=== PATIENT | female | born 1975 | race Caucasian/White ===

== ENCOUNTER 2021-03-04 19:58 | Inpatient (IN) | payer MEDICAID, OTHER ==
[~2021-03-04] VITALS: Ht 162.6 cm; Wt 76.5 kg
--- NOTE | 2021-03-04 20:11 | NUR ---
PT BROUGHT IN FROM [facility] FOR POSSIBLE STEMI. PT CO 8/10 STERNAL CHEST PAIN. 1MM ST ELEVATION SEEN IN LEADS II, III AND AVF WITH T WAVE CHANGES IN V3 AND V5 FROM EKG FROM [facility]. MD HEIN AT BEDSIDE. 5000U HEPARIN BOLUS AND INFUSION AT 950U/HR GIVEN X RAY TECHNOLOGIST. 324MG ASA GIVEN X RAY TECHNOLOGIST.
--- NOTE | 2021-03-04 20:11 | NUR ---
CODE CARDIAC CALLED AT 2008
--- NOTE | 2021-03-04 20:20 | NUR ---
Code Cardiac called @ 2007 Called Cardiology @ 2012 Cardiology called back @ 2014 via Jimmy Jolley
[2021-03-04] MEDS ORDERED: BIVALIRUDIN 250 MG ONE (20:35)
[2021-03-04] MEDS ORDERED: MIDAZOLAM 1 MG/ML, 5ML ONE (20:35)
[2021-03-04] MEDS ORDERED: VERAPAMIL 2.5 MG/ML, 2ML ONE (20:35)
[2021-03-04] MEDS ORDERED: LIDOCAINE-MPF 1%, 5ML ONE (20:35)
[2021-03-04] MEDS ORDERED: FENTANYL PF 250 MCG/5ML ONE (20:35)
[2021-03-04] MEDS ORDERED: HEPARIN 1,000 UNITS/ML, 10ML ONE (20:36)
[2021-03-04 20:44] LABS: TROPONIN I < 0.015 ng/mL (0.000-0.045)
--- NOTE | 2021-03-04 20:50 | NUR ---
REPORT GIVEN TO SULY MORALES
[2021-03-04] MEDS ORDERED: HEPARIN 25,000 UNITS/250ML PMX 250 ML IV PRN (21:00)
[2021-03-04] MEDS ORDERED: HEPARIN 5,000 UNITS/ML, 1ML IV PRN (21:00)
[2021-03-04] MEDS ORDERED: HEPARIN 25,000 UNITS/250ML PMX 250 ML ONE (21:21)
[2021-03-04] MEDS ORDERED: OXYcodone IR 5MG TABLET PO PRN (22:00)
[2021-03-04] MEDS ORDERED: hydrALAzine 20 MG/ML, 1ML IVPush PRN (22:00)
[2021-03-04] MEDS ORDERED: PROMETHAZINE 25 MG/ML, 1ML IM PRN (22:00)
[2021-03-04] MEDS ORDERED: NITROGLYCERIN 0.4 MG BOTTLE (25 TABS) SL PRN (22:00)
[2021-03-04] MEDS ORDERED: ONDANSETRON 2MG/ML, 2ML IVPush PRN (22:00)
[2021-03-04] MEDS ORDERED: ONDANSETRON ODT 4 MG PO PRN (22:00)
[2021-03-04] MEDS ORDERED: BISACODYL 10 MG SUPP PR PRN (22:00)
[2021-03-04] MEDS ORDERED: ACETAMINOPHEN 325 MG TABLET PO PRN (22:00)
[2021-03-04] MEDS ORDERED: DOCUSATE 100 MG CAPSULE PO PRN (22:00)
[2021-03-04] MEDS ORDERED: POLYETHYLENE GLYCOL 17 GM PACKET PO PRN (22:00)
[2021-03-04] MEDS ORDERED: SALMETEROL INH 50MCG/INH DISK.W.DEV INH SCH (22:30)
[2021-03-04] MEDS ORDERED: ALBUTEROL HFA 90 MCG/SPRAY INH PRN (22:30)
[2021-03-04] MEDS ORDERED: BUDESONIDE 0.5 MG/2 ML INHA INH SCH (22:30)
[2021-03-04 22:32] VITALS: BP 137/89
[2021-03-04] MEDS: SODIUM CHLORIDE 0.9% 1,000 ML IV SCH (23:11)
[2021-03-05 00:20] LABS: TROPONIN I < 0.015 ng/mL (0.000-0.045)
[2021-03-05 02:20] VITALS: BP 100/64
[2021-03-05 03:26] LABS: BASOPHILS % (AUTO) 1 % (0-1); EOSINOPHILS % (AUTO) 1 % (1-7); LYMPHOCYTES % (AUTO) 28 % (22-44); MEAN CORPUSCULAR HEMOGLOBIN 30.2 pg (27.0-34.8); MEAN CORPUSCULAR HGB CONC 33.6 g/dL (32.4-35.8); MEAN PLATELET VOLUME 9.6 fL (7.4-10.4); MONOCYTES % (AUTO) 10 % (2-9); NEUTROPHILS % (AUTO) 61 % (42-75); PLATELET COUNT 281 x10^3/uL (130-400); RED CELL DISTRIBUTION WIDTH 14.5 % (9.6-15.2)
[2021-03-05 03:30] LABS: MD NO
[2021-03-05 03:38] LABS: ALBUMIN 3.6 g/dL (3.4-5.0); ANION GAP 7 mmol/L (5-15); CALCIUM 8.5 mg/dL (8.5-10.1); CHLORIDE 109 mmol/L (98-107)
[2021-03-05 03:49] LABS: ALANINE AMINOTRANSFERASE 19 U/L (12-78); ALKALINE PHOSPHATASE 47 U/L (45-117); BILIRUBIN,TOTAL 0.8 mg/dL (0.2-1.0); CHOL/HDL RATIO 2.8; CHOLESTEROL, TOTAL 158 mg/dL (140-239); CREATININE 0.64 mg/dL (0.55-1.02); HDL CHOL % 36 % (28-40); HDL CHOLESTEROL (DIRECT) 57 mg/dL (40-60); LDL CHOLESTEROL,CALCULATED 89 mg/dL (54-169); LDL/HDL RATIO 1.6 (0.5-3.0); TOTAL PROTEIN 6.8 g/dL (6.4-8.2); TRIGLYCERIDES 61 mg/dL (50-200); VLDL CHOLESTEROL 12 mg/dL (0-25)
[2021-03-05 03:50] LABS: TROPONIN I < 0.015 ng/mL (0.000-0.045)
[2021-03-05] MEDS ORDERED: HEPARIN 25,000 UNITS/250ML PMX 250 ML IV PRN (04:30)
[2021-03-05] MEDS ORDERED: ASPIRIN 325 MG TABLET EC PO SCH (06:00)
[2021-03-05 07:42] VITALS: BP 117/81
[2021-03-05] MEDS ORDERED: NICOTINE 21 MG/24 HR PATCH.TD24 TD ONE (09:30)
[2021-03-05] MEDS: SODIUM CHLORIDE 0.9% 1,000 ML IV SCH (09:42)
[2021-03-05] MEDS ORDERED: REGADENOSON 0.4 MG/5 ML SYRINGE ONE (10:20)
[2021-03-05] MEDS: CARVEDILOL 3.125 MG TABLET PO SCH ×2 (12:36→19:50)
[2021-03-05 12:53] VITALS: BP 125/77
[2021-03-05] MEDS ORDERED: LORazepam 2 MG/ML, 1ML IVPush ONE (13:00)
[2021-03-05 13:05] LABS: MICROSCOPIC NOT IND
[2021-03-05] MEDS ORDERED: NITR0.4T28 SL (15:00)
[2021-03-05 19:40] VITALS: BP 122/80
== END 2021-03-05 23:51 | disposition home or self-care (01) | DRG 198 ==
LOC: ED 21:31 → EDIP 22:04 → 5SO 22:27
PROVIDERS: ADMIT Internal Medicine; ATTEND Hospitalist
DX: R07.89 Other chest pain (principal); I25.10 Atherosclerotic heart disease of native coronary artery without angina pectoris; J45.909 Unspecified asthma, uncomplicated; R07.2 Precordial pain; I51.7 Cardiomegaly; R94.31 Abnormal electrocardiogram [ECG] [EKG]; Z87.891 Personal history of nicotine dependence; Z90.49 Acquired absence of other specified parts of digestive tract
CPT/HCPCS: 36415; 71045; 78452; 80047; 80053; 80061; 81003; 83036; 83735; 84100; 84443; 84484; 85025; 85379; 85520; 93005; 93017; 93306; 96374; G0378; J0583; J1644; J2250; J2785; J3010; A9502; J2060; J7030